=== PATIENT | female | born 1990 | race Caucasian/White ===

== ENCOUNTER → 2019-02-22 | Outpatient (CLI) | payer OTHER ==
--- NOTE | 2019-02-22 14:15 | WOMENS IMAGING REPORT ---
EXAM DESCRIPTION: BILAT SCREENING MAMMO W/CAD COMPLETED DATE/TIME: 02/22/2019 11:53 am REASON FOR STUDY: Z12.31 ROUTINE BILATERAL SCREENING Z12.31 ENCNTR SCREEN MAMMOGRAM FOR MALIGNANT N EOPLASM OF KIMBERLEE bilateral breast itching, bilateral breast tenderness COMPARISON: No previous TECHNIQUE: Standard craniocaudal and mediolateral oblique views of each breast recorded using digita l acquisition. LIMITATIONS: None. FINDINGS: No masses, calcifications or architectural distortion. No areas of suspicion. Read with the assistance of CAD. .[facility] - R2 Cenova Version 1.3 .[facility] - R2 Cenova Version 1.3 .[facility] - R2 Cenova Version 2.4 .[facility] [place] R2 Cenova Version 2.4 .[facility] - R2 Adoption Coordinator Version 9.2 IMPRESSION: NORMAL MAMMOGRAM. BIRADS 1. BREAST DENSITY: c. The breasts are heterogeneously dense, which may obscure small masses. BIRAD: 1 NEGATIVE RECOMMENDATION: Patient should begin bilateral mammography at age 40. Patient should begin screenin g the under than age 40 if found to have an increased lifetime risk of breast cancer using the Shwetha m jammie assessment. Because the patient presented with bilateral breast itching and tenderness, bilateral breast ultrasou nd is recommended for followup. BI-RADS 0 Incomplete: Needs Additional Imaging Evaluation with bilateral breast ultrasound. COMMENT: The patient has been notified of the results by letter per [place] requirements. Additional no tification policies are in place for contacting patient with suspicious or incomplete findings. Quality ID #[id number]: The [employer] recommends an annual screening mammogram for women aged 40 years or over. This facility utilizes a reminder system to ensure that all patients receive reminder letters, and/or direct phone calls for appointments. This includes reminders for routine scr eening mammograms, diagnostic mammograms, or other Breast Imaging Interventions when appropriate. Th is patient will be placed in the appropriate reminder system. The [employer] ([employer]) has developed recommendations for screening MRI of the breast s in certain patient populations, to be used in conjunction with mammography. Breast MRI surveillanc e may be appropriate for women with more than 20% lifetime risk of developing breast cancer as deter mined by genetic testing, significant family history of the disease, or history of mantle radiation f or Hodgkins Disease. ACR Practice Guidelines 2008. TECHNICAL DOCUMENTATION: FINDING NUMBER: (1) ASSESSMENT: (1) JOB ID: [id number] [employer]- All Rights Reserved Reading location - IP/workstation name: [email or web address]
== END ==
LOC: WI 11:11
PROVIDERS: ATTEND Internal Medicine
DX: Z12.31 Encounter for screening mammogram for malignant neoplasm of breast (principal)
CPT/HCPCS: 77067

== ENCOUNTER → 2020-08-13 | Outpatient (CLI) | payer OTHER ==
--- NOTE | 2020-08-14 12:41 | Pulmonary Function Test ---
Pulmonary Function Test Date of Procedure:: 08/13/20 INDICATION:: Dyspnea Referring Provider: Dr. Reed Noel Clinical Rn Liaison: Jeannette Kirby, GEOSPATIAL ANALYST, SUPER[employer]OR [employer] - Report Spirometry: Spirometry: pre-FVC: 4.57 L 127% pre-FEV:1 3.65 L 119% pre-FEV1/FVC %: 80 predicted: 86 igs-OFT87-65%: 3.27 L 91% Impression: Normal spirometry
== END ==
LOC: RT 07:45
PROVIDERS: ATTEND Family Medicine
DX: J45.30 Mild persistent asthma, uncomplicated (principal); R06.00 Dyspnea, unspecified
CPT/HCPCS: 94010